=== PATIENT | male | born 1975 | race Caucasian/White ===

== ENCOUNTER 2017-01-31 13:56 | Emergency (ER) | payer SELFPAY ==
[~2017-01-31] VITALS: Ht 180.3 cm; Wt 121.0 kg
[2017-01-31 14:32] LABS: EOSINOPHIL (%) 4.1 % (0-5); EOSINOPHIL COUNT 0.3 K/uL (0-0.3); HEMATOCRIT 44.1 % (38.0-50.0); IMMATURE GRANULOCYTE (%) 0.3 % (0.0-0.7); INSTRUMENT ABS NEUTROPHIL CT 4.4 K/uL; LYMPHOCYTE COUNT 1.5 K/uL (1.0-2.8); MCH 28.6 PG (29.0-34.0); MCHC 33.1 G/DL (30.0-36.0); MCV 86.3 FL (86-99); MEAN PLAT.VOLUME 10.9 uM^3 (9.0-12.4); MONOCYTE (%) 11.2 % (3-12); MONOCYTE COUNT 0.8 K/uL (0-0.8); NEUTROPHIL (%) 62.5 % (45-76); NEUTROPHIL COUNT 4.4 K/uL (1.8-6.4); PLATELET COUNT 204 K/uL (156-360); RBC DIS.WIDTH-CV 12.5 % (11.8-14.6); RBC DIS.WIDTH-SD 39.4 % (39-53); RED BLOOD COUNT 5.11 M/uL (4.00-5.50)
[2017-01-31 14:38] LABS: PROTHROMBIN TIME 11.2 SEC (10.2-12.9)
[2017-01-31 14:40] LABS: D-DIMER ELISA < 150.00 ng/mLDDU (<230)
[2017-01-31 14:41] LABS: PTT 30.8 SEC (25-37)
[2017-01-31 14:45] LABS: CHLORIDE 105 mEq/L (99-109); POTASSIUM 4.3 mEq/L (3.7-5.4); SODIUM 139 mEq/L (136-147)
[2017-01-31 14:46] LABS: GLUCOSE 176 mg/dL (70-99)
[2017-01-31 14:48] LABS: ANION GAP 12 MEQ/L (2-14)
[2017-01-31 14:50] LABS: GFR ESTIMATE (CALCULATED) > 59 mL/min/
[2017-01-31 14:51] LABS: UREA NITROGEN (BUN) 10 mg/dL (9-23)
[2017-01-31 14:58] LABS: TROP-I INTERPRETATION NEGATIVE; TROPONIN-I 0.01 ng/mL (0.0-0.30)
[2017-01-31 17:00] VITALS: BP 140/95
== END 2017-01-31 17:00 | disposition home or self-care (01) ==
LOC: EME 13:56
PROVIDERS: Emergency Medicine
DX: R00.2 Palpitations (principal); R06.00 Dyspnea, unspecified; E11.9 Type 2 diabetes mellitus without complications; Z79.84 Long term (current) use of oral hypoglycemic drugs
CPT/HCPCS: 71010; 80048; 84443; 84484; 85025; 85379; 85610; 85730; 93005; 99281; 99284